=== PATIENT | female | born 1950 | race Caucasian/White ===

== ENCOUNTER 2019-06-08 08:54 | Inpatient (IN) | payer OTHER ==
[2019-06-01 17:01] VITALS: BMI 28.8
--- NOTE | 2019-06-08 07:52 | HP ---
Admitting History and Physical - Admission Chief Complaint: left hip osteoarthritis x years History of Present Illness: 68 year old female presents in regard to their left hip. Longstanding history of left hip osteoarthritis. Patient complains of pain, limited ROM, difficulty ambulating and difficulty completing ADLs. Patient has failed conservative treatment measures including PO medications, injections, exercise programs and activity modification. At this point, patient wishes to proceed with surgical intervention, a left total hip arthroplasty - MAKOplasty. History Source: Patient - Past Medical History Psych: Yes: Depression Musculoskeletal: Yes: Osteoarthritis ENT: Yes: Allergic Rhinitis - Past Surgical History Additional Past Surgical History: See written history & physical. - Advance Directives Advance Directives: Yes: Living Will, Health Care Proxy - Smoking History Smoking history: Former smoker Have you smoked in the past 12 months: No If you are a former smoker, when did you quit?: 1980 - Alcohol/Substance Use Hx Alcohol Use: Yes (glass of wine 2x week) Home Medications - Allergies Allergies/Adverse Reactions: Allergies Allergy/AdvReac Type Severity Reaction Status Date / Time levofloxacin [From Levaquin] AdvReac pain in Verified 06/01/19 17:43 joints - Home Medications Home Medications: Ambulatory Orders Loratadine [Claritin] 10 mg PO DAILY 06/01/19 Montelukast Sodium [Singulair] 10 mg PO DAILY 06/01/19 Sertraline HCl [Zoloft] 75 mg PO DAILY 06/01/19 Review of Systems - Review of Systems Musculoskeletal: reports: Decreased ROM (left hip), Extremity Pain (left hip), Joint Pain (left hip) Physical Examination Constitutional: Yes: Well Nourished, No Distress Eyes: Yes: Conjunctiva Clear HENT: Yes: Atraumatic Neck: Yes: Supple Cardiovascular: Yes: Regular Rate and Rhythm Respiratory: Yes: Regular Gastrointestinal: Yes: Soft ...Rectal Exam: Yes: Deferred Musculoskeletal: Yes: Joint Stiffness (left hip) Assessment/Plan 68 year old female presents in regard to their left hip. Longstanding history of left hip osteoarthritis. Patient complains of pain, limited ROM, difficulty ambulating and difficulty completing ADLs. Patient has failed conservative treatment measures including PO medications, injections, exercise programs and activity modification. At this point, patient wishes to proceed with surgical intervention, a left total hip arthroplasty - MAKOplasty. Pros, cons, risks benefits and alternatives of a left total hip arthroplasty, MAKOplasty were discussed with the patient at length. Patient confirms their understanding and consents to proceed wituh a left total hip arthroplasty, MAKOplasty.
[~2019-06-08 08:54] MED LIST: BUPIVICAINE 0.25%/MORPH PF/KETOROLAC - 51ML DISP.SYRINGE IA ONE; CEFAZOLIN 2 GM in DEXTROSE 5%-WATER - 50 ML IVPB ONE; TRANEXAMIC ACID 1000 MG/10 ML VIAL IVPUSH ONE
[2019-06-08] MEDS ORDERED: PROPOFOL 20 ML ONE ×2 (09:56)
[2019-06-08] MEDS ORDERED: MIDAZOLAM HCL 2 MG/2 ML SINGLE DOSE VIAL ONE ×2 (09:56→10:29)
[2019-06-08] MEDS ORDERED: KETOROLAC TROMETHAMINE 30 MG/1 ML VIAL ONE ×2 (09:57→14:18)
[2019-06-08] MEDS ORDERED: ceFAZolin SODIUM 1 GM VIAL ONE ×3 (09:57→11:15)
[2019-06-08] MEDS ORDERED: ONDANSETRON 4 MG/2 ML VIAL ONE (09:57)
[2019-06-08] MEDS ORDERED: DEXAMETHASONE SOD PHOSPHATE 4 MG/1 ML VIAL ONE (09:57)
[2019-06-08] MEDS: CELECOXIB 200 MG CAPSULE PO ONE (10:10)
[2019-06-08] MEDS: PANTOPRAZOLE 40 MG TABLET PO ONE (10:10)
[2019-06-08] MEDS: oxyCODONE HCL 10 MG SUSTAINED ACTING TABLET PO ONE (10:10)
[2019-06-08] MEDS ORDERED: BUPIVACAINE HCL/PF 0.5% (5 MG/ML) 30 ML VIAL IJ ONE (10:29)
[2019-06-08] MEDS ORDERED: DEXAMETHASONE SOD PHOSPHATE/PF 10 MG/ML SDV ONE (10:29)
[2019-06-08] MEDS ORDERED: LIDOCAINE 1% P/F 10 MG/ML VIAL ONE (10:44)
[2019-06-08] MEDS ORDERED: TRANEXAMIC ACID 1000 MG/10 ML VIAL ONE (10:55)
[2019-06-08] MEDS ORDERED: VANCOMYCIN 1,000 MG VIAL (RESTRICTED TO ID ONLY) ONE (10:55)
[2019-06-08] MEDS ORDERED: ACETAMINOPHEN 1000 MG/100 ML VIAL (NON FORMULARY) IVPB ONE ×2 (12:49→14:25)
[2019-06-08] MEDS ORDERED: VANCOMYCIN 1,000 MG VIAL (RESTRICTED TO ID ONLY) IVPB ONE (13:20)
[2019-06-08] MEDS ORDERED: BUPIVICAINE 0.25%/MORPH PF/KETOROLAC - 51ML DISP.SYRINGE IA ONE ×2 (13:27→13:47)
[2019-06-08] MEDS ORDERED: TRANEXAMIC ACID 1000 MG/10 ML VIAL IVPUSH ONE (13:47)
[2019-06-08] MEDS ORDERED: traMADol HCL 50 MG TABLET ONE (14:19)
--- NOTE | 2019-06-08 14:25 | OP ---
Operative Note - Note: Operative Date: 06/08/19 Pre-Operative Diagnosis: Left hip OA Operation: Left MAGDA SKYLAR Post-Operative Diagnosis: Same as Pre-op Surgeon: Surjit Perez Leather Cutter: Blaise Gotti Anesthesia: Spinal Estimated Blood Loss (mls): 200
[2019-06-08] MEDS: traMADol HCL 50 MG TABLET PO SCH ×2 (14:45→21:41)
[2019-06-08] MEDS ORDERED: MAG HYDROX/AL HYDROX/SIMETH 30 ML UNIT-DOSE CUP PO PRN (14:48)
[2019-06-08] MEDS ORDERED: MAGNESIUM HYDROX 2400MG/30ML ORAL SUSPENSION 30 ML CUP PO PRN (14:48)
[2019-06-08] MEDS ORDERED: ONDANSETRON 4 MG/2 ML VIAL IVPUSH PRN (14:48)
[2019-06-08] MEDS: KETOROLAC TROMETHAMINE 15 MG/ML VIAL IVPUSH SCH ×2 (14:50→21:41)
--- NOTE | 2019-06-08 14:51 | SURG ---
Surgery Ornamental Plaster Sticker Note Ornamental Plaster Sticker: Blaise Gotti PA-C Date of Service: 06/08/19 Diagnosis: Left hip Osteoarthritis Procedure: Left MAGDA total hip replacement I was present for the entirety of the operative procedure. For further detail, please refer to operative report. Visit type - Case Type Case Type: Scheduled - Emergency Emergency Visit: No - New patient This patient is new to me today: Yes Date on this admission: 06/08/19 - Critical Care Critical Care patient: No
[2019-06-08] MEDS ORDERED: LACTATED RINGERS SOLUTION 1,000 ML IV SCH (15:00)
[2019-06-08] MEDS: CEFAZOLIN 2 GM/D5W 2 GM/50 ML ML IVPB SCH (17:53)
--- NOTE | 2019-06-08 18:05 | SPEC ---
DATE OF OPERATION: 06/08/2019 PREOPERATIVE DIAGNOSIS: Left hip osteoarthritis. POSTOPERATIVE DIAGNOSIS: Left hip osteoarthritis. PROCEDURE: Left total hip replacement with MAKOplasty robotic navigation. ATTENDING: Lola Aggarwal MD MOCK UP MAKER: LING [place] ANESTHESIA: Spinal plus sedation. ESTIMATED BLOOD LOSS: 200 mL. COMPLICATIONS: None. DISPOSITION: The patient was taken to the PACU in stable condition. IMPLANTS USED: Khoa Accolade II size 4 femoral component, Khoa Trident II 52-mm acetabular component with 25- and 15-mm acetabular screws, MDM bipolar head ball and liner with inner ceramic +0-mm offset head ball. INDICATIONS: This is a 68-year-old female who presented to the office complaining of severe left hip pain. She was seen and examined by Dr. Aggarwal and diagnosed with severe left hip osteoarthritis. The patient was initially treated conservatively with injections, medications, and physical therapy but continued to have severe pain and ambulatory dysfunction. She was, therefore, indicated for a left total hip replacement. The risks, benefits, and alternatives to the procedure were explained to the patient in great detail, and she elected to proceed with the procedure. DESCRIPTION OF PROCEDURE: On the day of surgery, the patient was taken to the operating room and placed on the OR table. Spinal anesthesia was administered by the anesthesiologist. The patient was then positioned in the lateral decubitus position on the table and all bony prominences were padded. An axillary roll was placed. The operative hip was then prepped and draped in the usual sterile fashion and intravenous antibiotics were given for infection prophylaxis. A surgical time-out was then performed with the team, and the patients identity, procedure, side, availability of implants, and the administration of antibiotics were confirmed. An approximately 15-cm longitudinal incision was made through the skin centered on the greater trochanter of the hip. This dissection was carried down through the subcutaneous tissues to the deep fascia. This fascia was then incised and a Cobra was placed around the inferior femoral neck. Electrocautery was used to reflect the anterior 40% of the gluteus medius and minimus starting at the musculotendinous junction and leaving a cuff for closure. This was reflected to reveal the capsule of the hip joint. An anterior capsulectomy was performed and the femoral head and neck were visualized. Grade 4 changes were noted diffusely throughout the joint. At this point, three small stab incisions were made superior to the main incision along the iliac crest. Three self-drilling Steinmann pins were then placed and the [email or web address] pelvic array was attached. Reference points on the limb were then entered into the robotic device and the limb length deficiency, offset, and femoral neck resection level were then calculated by the software. The hip was then dislocated with traction and external rotation. An oscillating saw was used to make the femoral neck cut at the level previously templated, and the femoral head was removed. Attention was then turned to the acetabulum. Retractors were then placed around the acetabulum and the labrum was removed. An acetabular checkpoint pin and the [email or web address] software were used to register the contours of the acetabulum. The acetabulum was then reamed in a single stage to the preoperatively templated size using the [email or web address] robotic arm. The appropriately sized cup was then impacted and had solid fixation as well as the preset inclination and version of 40 and 20 degrees, respectively. A polyethylene liner was then placed in the cup. Attention was then turned back to the femur, which was externally rotated for improved visualization. A femoral neck elevator was used to present the femoral neck cut, a box osteotome was used to enter the femoral canal, and a canal finder was used to go down the femoral shaft. The Monster broaches were used sequentially until the optimal scratch fit was achieved. This correlated with the preoperatively templated size. From here, several different offset head and neck configurations were tested until excellent stability and length were obtained. These measurements were quantified using the [email or web address] software. All trial components were then removed, the femur was copiously irrigated, and the final components were placed. Leg length and stability were checked again and found to be excellent. Irrigation was performed again. After final implants were placed, a 3-minute dilute Betadine soak was performed. Following this, the wound was thoroughly irrigated with normal saline, and wound closure was begun. Wound closure was started by repairing the abductor muscles with a no. 2 FiberWire stitch in a Krackow configuration passed through bone tunnels in the greater trochanter and tied over a bony bridge. This repair was then reinforced with a 0 V-Loc 180 barbed suture. Next, no. 1 Polysorb and 0 V-Loc 180 were used to close the fascia. The deep subcutaneous tissue was closed with no. 1 Polysorb sutures, and 2-0 Polysorb was used for the superficial subcutaneous tissue. The skin was closed using both 3-0 V-Loc 90 suture in a running subcuticular fashion and SwiftSet skin adhesive. The Monster array and pins were removed from the iliac crest and the stab incision sites were irrigated and closed with 4-0 Polysorb sutures and SwiftSet skin adhesive. Once this was completed, a sterile dressing was applied. The patient was then awakened and taken to the PACU in stable condition. LOLA AGGARWAL M.D. [id number]
[2019-06-08] MEDS: oxyCODONE HCL 5 MG TABLET PO PRN (19:25)
[2019-06-08] MEDS: ASCORBIC ACID 500 MG TABLET (FP) PO SCH (21:42)
[2019-06-08] MEDS: GABAPENTIN 300 MG CAPSULE PO SCH (21:42)
[2019-06-08] MEDS: ACETAMINOPHEN 325 MG TABLET (FP) PO SCH (21:42)
[2019-06-08] MEDS: CELECOXIB 200 MG CAPSULE PO SCH (21:42)
[2019-06-08] MEDS: SENNOSIDES/DOCUSATE COMBO (SENNA PLUS) TABLET (UD) PO SCH (21:43)
[2019-06-09] MEDS ORDERED: DEXAMETHASONE SOD PHOSPHATE 10 MG/1 ML VIAL IVPB ONE
[2019-06-09] MEDS: CEFAZOLIN 2 GM/D5W 2 GM/50 ML ML IVPB SCH (02:13)
[2019-06-09] MEDS: KETOROLAC TROMETHAMINE 15 MG/ML VIAL IVPUSH SCH ×3 (02:17→22:39)
[2019-06-09] MEDS: ACETAMINOPHEN 325 MG TABLET (FP) PO SCH ×3 (02:18→22:27)
[2019-06-09] MEDS: traMADol HCL 50 MG TABLET PO SCH ×3 (02:19→22:26)
[2019-06-09 07:27] LABS: HEMOGLOBIN 11.9 GM/dl (10.7-15.3); MCH 28.9 pg (25.7-33.7); MCHC 33.2 g/dl (32.0-36.0); MEAN CELL VOLUME 87.1 fl (80-96); MEAN PLT VOLUME 8.1 fl (7.5-11.1); PLATELET COUNT 278 K/MM3 (134-434); RBC 4.13 M/mm3 (3.60-5.2); RDW 12.4 % (11.6-15.6)
[2019-06-09 07:29] LABS: CALCIUM 8.9 mg/dl (8.5-10); CREATININE 0.6 mg/dl (0.55-1.3)
[2019-06-09] MEDS: ASPIRIN 325 MG TABLET PO SCH (08:36)
[2019-06-09] MEDS: GABAPENTIN 300 MG CAPSULE PO SCH ×2 (09:28→22:26)
[2019-06-09] MEDS: LORATADINE 10 MG TABLET PO SCH (09:28)
[2019-06-09] MEDS: CELECOXIB 200 MG CAPSULE PO SCH ×2 (09:28→22:26)
[2019-06-09] MEDS: SENNOSIDES/DOCUSATE COMBO (SENNA PLUS) TABLET (UD) PO SCH ×2 (09:29→22:26)
[2019-06-09] MEDS: MULTIVITAMINS (DAILY MVI) TABLET (FP) PO SCH (09:35)
[2019-06-09] MEDS: SERTRALINE HCL 25 MG TABLET (FP) PO SCH (10:27)
[2019-06-09] MEDS: ASCORBIC ACID 500 MG TABLET (FP) PO SCH ×2 (10:29→22:26)
[2019-06-09] MEDS: PANTOPRAZOLE 40 MG TABLET PO SCH (10:30)
[2019-06-09] MEDS: oxyCODONE HCL 5 MG TABLET PO PRN (13:08)
--- NOTE | 2019-06-09 15:11 | PN ---
Progress Note (short form) - Note Progress Note: POD #1 s/p L total hip replacement makoplasty under spinal and paravertebral. Doing well, ambulating in halls. Pain controlled. All questions answered.
[2019-06-09] MEDS ORDERED: MONTELUKAST NA 10 MG TABLET PO SCH (22:00)
[2019-06-10] MEDS: ACETAMINOPHEN 325 MG TABLET (FP) PO SCH ×3 (03:33→09:32)
[2019-06-10] MEDS: traMADol HCL 50 MG TABLET PO SCH ×3 (03:33→09:31)
[2019-06-10 07:46] LABS: HEMATOCRIT 33.2 % (32.4-45.2); HEMOGLOBIN 11.3 GM/dl (10.7-15.3); MCH 29.6 pg (25.7-33.7); MCHC 33.9 g/dl (32.0-36.0); MEAN CELL VOLUME 87.2 fl (80-96); PLATELET COUNT 220 K/MM3 (134-434); RBC 3.81 M/mm3 (3.60-5.2); RDW 12.4 % (11.6-15.6); WHITE BLOOD COUNT 7.1 K/mm3 (4.0-10.8)
--- NOTE | 2019-06-10 08:30 | DS ---
Physical Examination Vital Signs: Vital Signs Temperature 98.1 F 06/10/19 06:00 Pulse Rate 70 06/10/19 06:00 Respiratory Rate 18 06/10/19 06:00 Blood Pressure 114/63 06/10/19 06:00 O2 Sat by Pulse Oximetry (%) 97 06/10/19 06:00 Labs: CBC, BMP 06/10/19 07:10 06/09/19 07:00 Discharge Summary Problems reviewed: Yes Reason For Visit: LEFT HIP OSTEOARTHRITIS Current Active Problems Osteoarthritis of left hip (Acute) Procedures: Principal: left MAGDA SKYLAR Hospital Course: Admitted for elective surgery. Procedure performed without complications. Pt received postoperative antibiotic prophylaxis and DVT ppx. Ambulated with physical therapy. Stable for discharge home with outpatient followup. Condition: Stable - Instructions Diet, Activity, Other Instructions: Dr Perez - Hip Replacement Instructions Keep the Aquacel dressing on until removed by Dr. Perez in the office - it is antibacterial and waterproof and you can shower with it on. Call the office for a follow-up appointment with Dr. Perez in 2 weeks. Take one Aspirin 325mg daily for 6 weeks to prevent blood clots in your legs. Take one Pantoprazole 40mg daily for 6 weeks to protect against heartburn and ulcers. Take Cephalexin (antibiotic) 3x/day for 10 days to help prevent skin infection. Take Celebrex 200mg daily for 30 days to reduce swelling and inflammation. Take a multivitamin, stool softener and extra Vitamin C supplement daily. For pain: *Mild pain (1-3/10): Take 1 Tramadol tablet every 4 hours as needed. Moderate pain (4-6/10): Take 1 Tramadol tablet and 1 Percocet tablet every 4 hours as needed. Severe pain (7-10/10): Take 1 Tramadol tablet and 2 Percocet tablets every 4 hours as needed. Activity: You can put as much weight on the operative leg as you want. For the first 6 weeks, all you need to do is walk around the house, go up/down stairs, and sit down/get up. After 6 weeks when everything is healed (and bone has grown into the implant) you will be sent for more intensive outpatient physical therapy. Always use a walker or cane for balance and to prevent falls. Expect to see swelling / bruising from the operative site all the way down to your toes. Wear the Compression stocking on the operative side during the day to minimize how much swelling there is in your foot/ankle. Don't wear the stocking at night. You don't have to wear the stocking on the other side. Disposition: [facility]/HOME HEALTH CARE - Home Medications Comprehensive Discharge Medication List: Ambulatory Orders Loratadine [Claritin] 10 mg PO DAILY 06/01/19 Montelukast Sodium [Singulair] 10 mg PO DAILY 06/01/19 Sertraline HCl [Zoloft] 75 mg PO DAILY 06/01/19 Ascorbic Acid [Vitamin C -] 500 mg PO BID tablet 06/10/19 Aspirin [ASA -] 325 mg PO DAILY@0800 tablet 06/10/19 Celecoxib [CeleBREX -] 200 mg PO DAILY #30 capsule 06/10/19 Cephalexin Monohydrate [Keflex -] 500 mg PO TID #30 capsule 06/10/19 Multivitamins [Multivit ([facility] Formul[facility])] 1 tab PO DAILY tab 06/10/19 Oxycodone HCl/Acetaminophen [Percocet 5-325 mg Tablet] 1 - 2 tab PO Q4H PRN #60 tablet MDD 10 06/10/19 Pantoprazole Sodium [Protonix -] 40 mg PO DAILY #40 tablet.ec 06/10/19 Sennosides/Docusate Sodium [Pericolace -] 2 tablet PO BID tablet 06/10/19 traMADol HCL [Ultram -] 50 mg PO Q4H PRN #42 tablet MDD 6 06/10/19
[2019-06-10 09:22] VITALS: BP 108/63; PULSE 82; TEMP 97.7
[2019-06-10] MEDS: CELECOXIB 200 MG CAPSULE PO ONE (09:27)
[2019-06-10] MEDS: oxyCODONE HCL 10 MG SUSTAINED ACTING TABLET PO ONE (09:27)
[2019-06-10] MEDS: PANTOPRAZOLE 40 MG TABLET PO ONE (09:28)
[2019-06-10] MEDS: ASPIRIN 325 MG TABLET PO SCH (09:29)
[2019-06-10] MEDS: KETOROLAC TROMETHAMINE 15 MG/ML VIAL IVPUSH SCH (09:29)
[2019-06-10] MEDS: GABAPENTIN 300 MG CAPSULE PO SCH (09:29)
[2019-06-10] MEDS: ASCORBIC ACID 500 MG TABLET (FP) PO SCH (09:30)
[2019-06-10] MEDS: MULTIVITAMINS (DAILY MVI) TABLET (FP) PO SCH (09:30)
[2019-06-10] MEDS: CELECOXIB 200 MG CAPSULE PO SCH (09:30)
[2019-06-10] MEDS: LORATADINE 10 MG TABLET PO SCH (09:31)
[2019-06-10] MEDS: SERTRALINE HCL 25 MG TABLET (FP) PO SCH (09:31)
[2019-06-10] MEDS: PANTOPRAZOLE 40 MG TABLET PO SCH (09:31)
[2019-06-10] MEDS: SENNOSIDES/DOCUSATE COMBO (SENNA PLUS) TABLET (UD) PO SCH (09:31)
--- NOTE | 2019-06-10 15:37 | PATH ---
Surgical Pathology Report Patient Name: ADITI DUBOIS Med. Rec. #: [id number] /Age/Gender: 1950 (Age: 68) / F Account: [id number] Location: [facility] MED-SURG Taken: 06/08/2019 Received: 06/08/2019 Reported: 06/10/2019 Physicians: Surjit Perez M.D. Specimen(s) Received LEFT FEMORAL HEAD Clinical History Left hip osteoarthritis Final Diagnosis LEFR FEMORAL HEAD, RESECTION: DEGENERATIVE JOINT DISEASE, LEFT HIP. Electronically Signed Danielle Barraza M.D. Gross Description Received in formalin, labeled "left femoral head," is a 4.5 x 4.3 x 4.3 cm. femoral head with a 1.1 cm in length portion of femoral neck attached. The margin of resection is smooth. There is a 2.0 cm in greatest dimension area of eburnation present. The remaining articular surface is daniels-yellow and diffusely granular. The underlying trabecular bone is yellow and hard. A veterans service representative section is submitted in one cassette, following decalcification. /06[facility]
== END 2019-06-10 11:15 | disposition home health service (06) | DRG 470 ==
LOC: FM/S 09:18
PROVIDERS: ADMIT Student in an Organized Health Care Education/Training Program; ATTEND Student in an Organized Health Care Education/Training Program
PROC: 8E0W0CZ Robotic Assisted Procedure of Trunk Region, Open Approach (ICD-10-PCS; 2019-06-08)
PROC: 0SRB03A Replacement of Left Hip Joint with Ceramic Synthetic Substitute, Uncemented, Open Approach (ICD-10-PCS; principal; 2019-06-08 11:52)
DX: M16.12 Unilateral primary osteoarthritis, left hip (principal)
CPT/HCPCS: 36415; 73502-TC-LT-FY; 80048; 85027; 88304-TC; 88311-TC; 94760; 97116-GP; 97163-GP; J0131; J1100